=== PATIENT | female | born 1935 | race Caucasian/White ===

== ENCOUNTER 2016-10-25 15:49 | Inpatient (IN) | payer MEDICARE ==
--- NOTE | ~2016-10-25 | CN ---
Consultation Report [facility] [address] [place]. [address] NAME: AFIA KRUEGER : 37 STATUS : ADM IN [facility]#: [id number] AGE: 81 ADM/REG DATE : 10/25/16 MR#: [id number] REPORT SERV DATE: 10/26/16 DICTATED BY: KEVYN LOTT DATE: 10/26/16 REPORT STATUS : Draft TRANSCRIBED BY: SOWMYA DATE: 10/26/16 CONSULTATION DATE OF CONSULTATION: 10/26/2016 REASON FOR CONSULTATION: Left hip fracture. HISTORY: Ms Krueger is a 81-year-old female, who fell landing on her left side. Yesterday, she had immediate onset of severe left hip pain. She presented to [facility] Emergency Room where x-rays showed a displaced left femoral neck fracture. I have now been asked to see her for evaluation and treatment. The patient's history was obtained through the chart. She cannot verbally communicate due to underlying delirium. Her daughter is unavailable at the time of initial consultation. PHYSICAL EXAMINATION: She is awake, alert and oriented x1. There is no discernible cervical tenderness. She has no evidence of bony injury to either upper extremity or right lower extremity. With regard to her left lower extremity, it is shortened and externally rotated. She has no pain with AP or lateral compression of her pelvis. She is non-tolerant to any attempted passive left hip range of motion. There is moderate trochanteric tenderness. She has no tenderness in the mid thigh distally. Sciatic nerve motor function was unable to be assessed due to the patient's underlying mental status. She does withdraw to plantar stimulation. She has weakly present, but palpable pedal pulses. DIAGNOSTIC STUDIES: X-rays of her left hip show a displaced transcervical left femoral neck fracture. IMPRESSION: Displaced transcervical left femoral neck fracture. PLAN: We will contact the patient's daughter with treatment options with recommendation for left hip beltran versus total hip arthroplasty. We will review the risks, benefits, and expected outcome of the surgery with her daughter. Thanks for the consultation. GARY/SOWMYA Kevyn Lott M.D. / [id number] Consultation Report [facility] [address] [place]. [address] NAME: AFIA KRUEGER DECEMBER : 37 STATUS : ADM IN PAT#: [id number] AGE: 81 ADM/REG DATE : 10/25/16 MR#: [id number] REPORT SERV DATE: 10/26/16 DICTATED BY: KEVYN LOTT DATE: 10/26/16 REPORT STATUS : Draft TRANSCRIBED BY: MODL DATE: 10/26/16 CC: Baljit Mcfadden M.D.
--- NOTE | ~2016-10-25 | DS ---
Discharge Summary [facility] [address] [place]. [address] NAME: AFIA JOHNSON : 37 STATUS : ADM IN [facility]#: [id number] AGE: 81 ADM/REG DATE : 10/25/16 MR#: [id number] REPORT SERV DATE: 10/28/16 DICTATED BY: BRETT GUILLEN DATE: 10/28/16 REPORT STATUS : Draft TRANSCRIBED BY: MODL DATE: 10/28/16 ADMISSION DATE: 10/25/2016 DISCHARGE DATE: 10/28/2016 DIAGNOSES ON ADMISSION: 1. Left hip fracture. 2. Diabetes mellitus with hyperglycemia. 3. Hypertension. 4. History of transient ischemic attacks in the past. 5. Hypothyroidism, on Synthroid. 6. Urinary tract infection. DIAGNOSES ON DISCHARGE: 1. Status post left femoral neck fracture, status post surgery by Dr. Lott. 2. Diabetes mellitus type 2, controlled. 3. Hypertension, controlled. 4. Hyperlipidemia, on statin. 5. History of transient ischemic attacks, on aspirin and Plavix at home. 6. Hypothyroidism, controlled. 7. Advanced dementia. 8. Urinary tract infection, treated. CONSULTANTS ON THE CASE: Orthopedist, Dr. Lott. SURGERIES: Left hip hemiarthroplasty done on 10/26/[address] Lott. HISTORY OF PRESENT ILLNESS: Per dictation of nurse practitioner, Dm Gentile, and under supervision of Dr. Mcfadden. HOSPITAL COURSE: Briefly, the patient was seen by Dr. Mcfadden and his nurse practitioner Dm Gentile until 10/27/2016 when I started to see this patient. The patient was doing very well postsurgically. She was very stable. Her blood pressure was in the normal range as well as blood sugar was controlled, and she was doing well from surgical standpoint. She needs to continue to be more active with physical therapy, and she was discharged to [facility] today. She was approved for [facility] and she is very stable to go to [facility]. Regarding her urinary tract infection, it was treated empirically with antibiotics. She was afebrile and doing very well. She had elevated white count, but this is related to steroids. She was given a high dose of Decadron during surgery and now the white count is coming down, but she does not have any sign of infection. She is afebrile and doing very well, so leukocytosis is postsurgical plus dexamethasone steroid related. DISCHARGE MEDICATIONS: Norvasc 5 mg a day, Lipitor 40 mg a day, ferrous sulfate 300 mg b.i.d., insulin Lantus 20 units at bedtime, NovoLog level 1 sliding scale before meals, levothyroxine 25 mcg a day, lisinopril 40 mg a day, multivitamins daily, Lopressor 25 mg twice a day, Zoloft 50 mg a day, trazodone 100 mg at bedtime. Ade nurse practitioner of Dr. Lott recommended the patient to be on the Coumadin, sliding scale level 2 for 6 [address]charge Summary [address] [address] NAME: AFIA JOHNSON DECEMBER : 37 STATUS : ADM IN [facility]#: [id number] AGE: 81 ADM/REG DATE : 10/25/16 MR#: [id number] REPORT SERV DATE: 10/28/16 DICTATED BY: BRETT GUILLEN DATE: 10/28/16 REPORT STATUS : Draft TRANSCRIBED BY: SOWMYA DATE: 10/28/16 weeks. She also said that the patient can continue Plavix and aspirin since she is not on a low dose Coumadin sliding scale. Also pain medication prescription for hydrocodone 10/325 q.4 hours p.r.n. was prescribed by Ade, nurse practitioner of Dr. Lott. Zofran 4 mg p.o. q.4 hours p.r.n. for nausea, aspirin 81 mg p.o. daily. I spent 45 minutes on discharge. The patient was discharged in a stable condition. /MODL Brett Guillen M.D. / [id number] CC: Wade Messer M.D. William Hartley, M.D.
--- NOTE | ~2016-10-25 | HP ---
History And Physical [facility] [address] [place]. [address] NAME: AFIA JOHNSON : 37 STATUS : ADM IN [facility]#: [id number] AGE: 81 ADM/REG DATE : 10/25/16 MR#: [id number] REPORT SERV DATE: 10/25/16 DICTATED BY: JAMIE HESS DATE: 10/25/16 REPORT STATUS : Draft TRANSCRIBED BY: MODL DATE: 10/25/16 DATE OF ADMISSION: 10/25/2016 HISTORY OF PRESENT ILLNESS: This is a 81-year-old female who is transferred to us from [facility] Emergency Room. She had a history of dementia, had a mechanical fall at home, while at home with , she got up from chair when he did not see her, and apparently bounced off the couch arm, lost her balance, and fell between the couch and chair onto a hardwood floor onto her left hip. The patient was in severe pain, unable bear weight, and was therefore brought to the emergency room at [facility] via ambulance where x-rays revealed a left hip fracture. Also urinalysis showed evidence of UTI, and in the emergency room at [facility], the patient received IV morphine and Zofran for hip pain and received a dose of IV Rocephin x1 dose for the UTI. Additionally, she was found to have a blood sugar greater than 400. She was given 4 units of regular insulin and her last known blood sugar was 275. Currently upon arriving at [facility], the patient is calm, does not appear to be in any pain while at rest. No shortness of breath. No chest pain. No nausea or vomiting. No abdominal pain. She has a little bit sedated and drowsy from giving IV pain medicine. PAST MEDICAL HISTORY: 1. Hypertension. 2. Diabetes type 2. 3. Hyperlipidemia. 4. Depression. 5. Hypothyroid. 6. Dementia. 7. History of TIA. 8. Dysphagia, apparently mild, only gets choked up with pills. PAST SURGICAL HISTORY: 1. Left knee patella fracture repair. 2. Hysterectomy. SOCIAL HISTORY: Lives with and daughter, demented, uses a gait belt for transfer. No smoking history. No alcohol history. FAMILY HISTORY: Noncontributory. REVIEW OF SYSTEMS: A 12-point review of systems reviewed with the patient and family and are negative except as previously mentioned. HOME MEDICATIONS: 1. Amlodipine 5 mg p.o. daily. 2. Plavix 75 mg p.o. daily. 3. Amaryl 2 mg p.o. daily. 4. Lantus 20 units subcu q.h.s. History And Physical [address] [place]. [address] NAME: AFIA JOHNSON DECEMBER : 39 STATUS : ADM IN PAT#: [id number] AGE: 81 ADM/REG DATE : 10/25/16 MR#: [id number] REPORT SERV DATE: 10/25/16 DICTATED BY: JAMIE HESS DATE: 10/25/16 REPORT STATUS : Draft TRANSCRIBED BY: SOWMYA DATE: 10/25/16 5. Synthroid 25 mcg p.o. daily. 6. Prinivil 40 mg p.o. daily. 7. Lopressor 50 mg half tablet b.i.d. 8. Pravachol 40 mg p.o. daily. 9. Trazodone 100 mg p.o. daily. 10.Sertraline 50 mg p.o. daily. ALLERGIES: ARICEPT, NAUSEA. PHYSICAL EXAMINATION: VITAL SIGNS: Blood pressure 156/74, heart rate 76, respirations 15, O2 saturation 98% on 2 L nasal cannula, and temperature 98.6. GENERAL: On exam, the patient is cooperative, no apparent distress, mildly drowsy. NEUROLOGIC: Alert after being awakened, but confused, unable to do much conversing, mainly just mumbles and smiles. No focal weakness. Face is symmetrical. Cranial nerves 2 through 12 grossly intact. NECK: No JVD. LUNGS: Clear to auscultation bilaterally with normal respiratory effort. CARDIOVASCULAR: No murmurs auscultated. Regular rhythm. ABDOMEN: Soft, nontender. Active bowel sounds. EXTREMITIES: No edema. Normal distal pulses. No calf tenderness. Left lower extremity is externally rotated and shortened. No bruising at hips at the site of fracture. LABORATORY DATA: White blood cell count 18.1, hemoglobin 14.1, hematocrit 42.6, platelets 157. Sodium 137, potassium 3.7, chloride 103, CO2 of 23, BUN 16, creatinine 1.07, glucose 275. Urinalysis: White blood cells 62, moderate bacteria, greater than 500 glucose, positive protein. EKG shows notes normal sinus rhythm with PACs. Heart rate 77. X-ray of bilateral hips and pelvis shows left complete femoral neck fracture. ASSESSMENT AND PLAN: 1. Left hip fracture. X-ray positive for complete left femoral neck fracture. We will provide p.r.n. analgesics. Make patient n.p.o. after midnight. Orthosurgery has been consulted. We will be holding her home Plavix. 2. Diabetes type 2 with hyperglycemia, last blood sugar was 275. We will lower her home Lantus dose and actually substitute with Levemir 10 units q.h.s. and use sliding scale insulin with level 1 NovoLog with a.c. h.s. Accu-Cheks and hold Amaryl. 3. Hypertension. Blood pressure currently 156/74. Resume home blood pressure medications including Norvasc, lisinopril, and Lopressor. Hold parameters for lisinopril if blood pressure systolically less than 120. 4. Hyperlipidemia, on Pravachol at home. Continue. 5. History of transient ischemic attack. At home, the patient is on statin, aspirin, and Plavix. We will be holding aspirin and Plavix preoperatively. 6. Hypothyroid, on Synthroid. We will continue her home Synthroid and check TSH in the morning. History And Physical [address] [address] NAME: AFIA JOHNSON : 37 STATUS : ADM IN [facility]#: [id number] AGE: 81 ADM/REG DATE : 10/25/16 MR#: [id number] REPORT SERV DATE: 10/25/16 DICTATED BY: JAMIE HESS DATE: 10/25/16 REPORT STATUS : Draft TRANSCRIBED BY: MODL DATE: 10/25/16 7. Urinary tract infection. Urinalysis found to be positive for urinary tract infection. Urine culture pending. Serum white blood cell count 18,000. Given one dose of IV Rocephin already in the [facility]. We will continue Rocephin 1 g IV daily and adjust accordingly after culture results. NANETTE/MODL Jamie Hess APN / [id number] CC: Wade Nuñez M.D. William Hartley, M.D.
--- NOTE | ~2016-10-25 | OP ---
Record Of Operation [facility] [address] [place]. [address] NAME: AFIA KRUEGER : 37 STATUS : ADM IN PAT#: [id number] AGE: 81 ADM/REG DATE : 10/25/16 MR#: [id number] REPORT SERV DATE: 10/26/16 DICTATED BY: KEVYN LOTT DATE: 10/26/16 REPORT STATUS : Draft TRANSCRIBED BY: MODL DATE: 10/26/16 DATE OF PROCEDURE: 10/26/2016 PREOPERATIVE DIAGNOSIS: Displaced left femoral neck fracture. POSTOPERATIVE DIAGNOSIS: Displaced left femoral neck fracture. OPERATION: Left hip hemiarthroplasty. SURGEON: Kevyn Lott MD [employer]: Kvng Krueger. ANESTHESIA: Spinal with MAC. ESTIMATED BLOOD LOSS: 300 mL. COMPLICATIONS: None. DRAIN: ConstaVac x1. IMPLANTS: DePuy [place] size 5 high offset femoral component with a 45 mm outer diameter, -3 neck length monopolar head and neck segment. INDICATIONS FOR SURGERY: Ms. Krueger is a 81-year-old female, who sustained the above- mentioned fracture in a fall. It was recommended that she undergo hemiarthroplasty. Risks of the procedure including infection, neurovascular damage, DVT, PE, blood loss requiring transfusion, fracture, dislocation, leg length discrepancy, component loosening, component wear, anesthetic complications, and others were discussed with her daughter preoperatively. Her daughter fully understood and has requested to proceed. PROCEDURE IN DETAIL: The patient was brought to the operating room and after adequate induction of anesthesia was positioned in the lateral decubitus position using the hip wreath inspector positioners. All appropriate pressure points were padded. The patient was given 1 gram of Ancef IV preoperatively. The hip was then prepped and draped in the usual sterile fashion. A posterolateral approach to the hip was performed. The skin and subcutaneous tissues were incised sharply using a #10 blade; electrocautery was used as needed to maintain hemostasis. The fascia felipe and fascia over the gluteus lucia were incised in line with the incision and the fibers of the gluteus lucia split using blunt dissection. The sciatic nerve was identified and carefully protected throughout the remainder of the case. A Charnley retractor was placed. The hip was then placed in flexion and internal rotation and the gluteus medius retracted anteriorly to expose the piriformis tendon. A full thickness capsulotomy was begun at the superior border of the piriformis tendon and extended anteriorly inferiorly using an inside out technique, taking down a portion of the short external rotators. Care was taken not to damage the labrum of the hip. The fracture site was exposed and the femur displaced anteriorly. A corkscrew was used to excise the femoral head Record Of Operation [facility] [address] [place]. [address] NAME: AFIA KRUEGER DECEMBER : 37 STATUS : ADM IN PAT#: [id number] AGE: 81 ADM/REG DATE : 10/25/16 MR#: [id number] REPORT SERV DATE: 10/26/16 DICTATED BY: KEVYN LOTT DATE: 10/26/16 REPORT STATUS : Draft TRANSCRIBED BY: SOWMYA DATE: 10/26/16 and the femoral head sized using hole templates. The appropriate sized femoral head trial was placed in the acetabulum to assure appropriate fit. Attention was then returned to the femur. The hip was placed in flexion and internal rotation and retractors carefully placed, protecting the sciatic nerve. The medial aspect of the greater trochanter was debrided of any cortical bone and soft tissue. The femoral canal was opened using a blunt tipped reamer. The lateralizing reamer was then used to clear any remaining cortical bone. The femur was then sequentially broached, beginning with size 1 and progressing sequentially until appropriate proximal metaphyseal fit and fill was obtained. The trial broach was left in place and a trial head and neck segment placed. The hip was reduced. The neck length was adjusted to reproduce equal leg lengths. The stability of the hip was then assessed at the patient's limit of extension and external rotation and to assure stability to 90 degrees of flexion and a minimum of 70 degrees of internal rotation and also stability in the position of sleep. Once this had been obtained, the hip was dislocated and the trial components were removed. The femoral canal was copiously irrigated with normal saline and dried and the final femoral component impacted into the femur to an identical level and identical anteversion of the trial component. A trial reduction was once again performed. Leg length and stability were unchanged. The true head and neck segment were then impacted into the clean femoral taper. The acetabulum was inspected to be sure it was free of all foreign matter and the hip reduced. The wound was copiously irrigated with pulsatile lavage normal saline. The capsule was repaired using interrupted #1 Vicryl suture in [id number] fashion. The short external rotators were repaired using a combination of #5 Ethibond and #1 Vicryl suture in horizontal mattress fashion. A drain was placed deep to the fascia. The fascia was repaired using interrupted #1 Vicryl suture in [id number] fashion. Subcutaneous tissue was approximated using interrupted 2-0 Vicryl suture and the skin stapled. Sterile dressing was applied and the patient awakened and taken to the recovery room in stable condition. POSTOP PLAN: The patient is to be weightbearing as tolerated with physical therapy to be started per hemiarthroplasty protocol. The patient will be on Coumadin and mechanical deep venous thrombosis prophylaxis. GARY/SOWMYA Kevyn Lott M.D. / [id number] CC: Baljit Mcfadden M.D. UNKNOWN
[~2016-10-25 15:49] MED LIST: AMARYL2 PO; ATV.5 PO; EXELON4.6T TOP; GLUCPH PO; LANTUS SC; LISINOPRIL40 MG PO; LOP25 PO; LOP50 PO; NORV5 PO; PLAVIX PO; PRAVACHOL40 MG PO; SYN.05 PO; TRAZ100
[2016-10-25] MEDS ORDERED: LOP25 PO (17:13)
[2016-10-25] MEDS ORDERED: PLAVIX PO (17:13)
[2016-10-25] MEDS ORDERED: LEVOTHROID25 MCG PO (17:13)
[2016-10-25] MEDS ORDERED: NORV5 PO (17:14)
[2016-10-25] MEDS ORDERED: AMARYL2 PO (17:14)
[2016-10-25] MEDS ORDERED: LIPITOR40 PO (17:16)
[2016-10-25] MEDS ORDERED: TRAZ100 PO (17:17)
[2016-10-25] MEDS ORDERED: ASAB PO (17:17)
[2016-10-25] MEDS ORDERED: LISINOPRIL40 MG PO (17:17)
[2016-10-25] MEDS ORDERED: LANTUS SC (17:18)
[2016-10-25] MEDS ORDERED: ZOL50 PO (17:19)
[2016-10-26 04:51] LABS: HEMATOCRIT 39.2 % (36.0-48.0); HEMOGLOBIN 13.3 g/dL (12.0-16.0); MEAN CORPUS HGB CONC 33.9 g/dL (32.0-36.0); MEAN CORPUSCULAR HEMOGLOB 30.9 pg (26.0-34.0); MEAN PLATELET VOLUME 11.2 fL (9.2-13.0); PLATELET COUNT 156 10/3/uL (150-400); RBC DISTRIBUTION WIDTH 13.6 % (12.0-16.0); RED CELL COUNT 4.31 10/6/uL (4.0-5.6); WHITE BLOOD CELLS 17.4 10/3/uL (4.5-10.5)
[2016-10-26 04:54] LABS: MANUAL DIFF YES %
[2016-10-26 05:15] LABS: BUN (BLOOD UREA NITROGEN) 16 MG/DL (6-23); CALCIUM, SERUM 8.5 MG/DL (8.5-10.4); CHLORIDE, SERUM 105 MMOL/L (96-112); CO2 (CARBON DIOXIDE) 28 MMOL/L (24-34); GFR AFRICAN AMERICAN 70 ML/MIN (>=60); GFR NON AFRICAN AMERICAN 61 ML/MIN (>=60); GLUCOSE, SERUM 176 MG/DL (60-99); POTASSIUM, SERUM 4.1 MMOL/L (3.5-5.3); SODIUM, SERUM 140 MMOL/L (135-148)
[2016-10-26 05:39] LABS: LYMPHOCYTES 8 %; LYMPHOCYTES ABSOLUTE (CALC) 1.39 10/3/uL (0.67-4.30); MONOCYTES 4 %; NEUTROPHILS ABSOLUTE (CALC) 15.31 10/3/uL (2.02-8.40); PLATELET ESTIMATE ADQ (ADEQUATE); POIKILOCYTOSIS 1+ (5-10/OIF) (0-5/OIF); SEGMENTED NEUTROPHIL (0) 88 %; TOTAL NUCLEATED CELLS 100
[2016-10-26 12:55] LABS: ALLENS TEST Pos; BE (BASE EXCESS) 0.5 MEQ/L (0 +/- 2.5); CARBOXYHEMOGLOBIN 0.5 % (0-3); DEVICE NC; HEMOBLOGIN CONTENT 13.7 G/DL (12-16); INSTRUMENT SERIAL # 11843; METHEMOGLOBIN 0.6 % (0-3); O2 CONTENT 17.4 VOL% (18-24); OPERATOR ID 19104; PCO2 (CO2 TENSION) 45 MMHG (35-45); PO2 (O2 TENSION) 64 MMHG (79-93); SAMPLE Arterial; pH 7.38 (7.37-7.43)
[2016-10-27 04:49] LABS: BASOPHILS 0 %; EOSINOPHILS 0 %; HEMOGLOBIN 11.4 g/dL (12.0-16.0); IMMATURE GRANULOCYTES 0.3 %; IMMATURE GRANULOCYTES ABSOLUTE 0.05 10/3/uL (0.0-0.11); LYMPHOCYTES 7.3 %; MEAN CORPUS HGB CONC 34.7 g/dL (32.0-36.0); MEAN CORPUSCULAR HEMOGLOB 31.6 pg (26.0-34.0); MEAN CORPUSCULAR VOLUME 91.1 fL (80-100); MEAN PLATELET VOLUME 11.1 fL (9.2-13.0); MONOCYTES 7.4 %; MONOCYTES ABSOLUTE 1.11 10/3/uL (0.21-1.20); PLATELET COUNT 135 10/3/uL (150-400); RBC DISTRIBUTION WIDTH 13.7 % (12.0-16.0); RED CELL COUNT 3.61 10/6/uL (4.0-5.6); WHITE BLOOD CELLS 15.1 10/3/uL (4.5-10.5)
[2016-10-27 04:50] LABS: HEMATOCRIT 32.9 % (36.0-48.0); MANUAL DIFF NO %
[2016-10-27 04:55] LABS: INTERNATIONAL NORMAL RATI 1.3 UNITS (-); PROTIME (NOT ORD) 15.6 SEC (12.0-14.5)
[2016-10-27 05:03] LABS: CALCIUM, SERUM 8.3 MG/DL (8.5-10.4); CHLORIDE, SERUM 104 MMOL/L (96-112); CO2 (CARBON DIOXIDE) 27 MMOL/L (24-34); CREATININE 0.97 MG/DL (0.55-1.02); GFR AFRICAN AMERICAN 64 ML/MIN (>=60); GFR NON AFRICAN AMERICAN 56 ML/MIN (>=60); GLUCOSE, SERUM 159 MG/DL (60-99); POTASSIUM, SERUM 3.8 MMOL/L (3.5-5.3); SODIUM, SERUM 139 MMOL/L (135-148)
[2016-10-27 05:04] LABS: BUN (BLOOD UREA NITROGEN) 22 MG/DL (6-23)
[2016-10-28 08:21] LABS: BASOPHILS 0.1 %; BASOPHILS ABSOLUTE 0.01 10/3/uL (0.0-0.16); EOSINOPHILS 0.2 %; EOSINOPHILS ABSOLUTE 0.03 10/3/uL (0.0-0.53); HEMOGLOBIN 11.3 g/dL (12.0-16.0); IMMATURE GRANULOCYTES 0.5 %; IMMATURE GRANULOCYTES ABSOLUTE 0.08 10/3/uL (0.0-0.11); LYMPHOCYTES 11.5 %; LYMPHOCYTES ABSOLUTE 1.82 10/3/uL (0.67-4.30); MEAN CORPUS HGB CONC 34.2 g/dL (32.0-36.0); MEAN CORPUSCULAR HEMOGLOB 30.8 pg (26.0-34.0); MEAN CORPUSCULAR VOLUME 89.9 fL (80-100); MEAN PLATELET VOLUME 11.1 fL (9.2-13.0); MONOCYTES 9.9 %; MONOCYTES ABSOLUTE 1.57 10/3/uL (0.21-1.20); NEUTROPHILS 77.8 %; PLATELET COUNT 161 10/3/uL (150-400); RBC DISTRIBUTION WIDTH 13.3 % (12.0-16.0); RED CELL COUNT 3.67 10/6/uL (4.0-5.6); WHITE BLOOD CELLS 15.8 10/3/uL (4.5-10.5)
[2016-10-28 08:22] LABS: MANUAL DIFF NO %
[2016-10-28 08:28] LABS: INTERNATIONAL NORMAL RATI 1.5 UNITS (-); PROTIME (NOT ORD) 18.3 SEC (12.0-14.5)
[2016-10-28 08:37] LABS: BUN (BLOOD UREA NITROGEN) 20 MG/DL (6-23); CALCIUM, SERUM 8.1 MG/DL (8.5-10.4); CHLORIDE, SERUM 106 MMOL/L (96-112); CO2 (CARBON DIOXIDE) 27 MMOL/L (24-34); CREATININE 0.72 MG/DL (0.55-1.02); GFR AFRICAN AMERICAN 92 ML/MIN (>=60); GFR NON AFRICAN AMERICAN 80 ML/MIN (>=60); GLUCOSE, SERUM 135 MG/DL (60-99); POTASSIUM, SERUM 3.6 MMOL/L (3.5-5.3); SODIUM, SERUM 142 MMOL/L (135-148)
== END 2016-10-28 17:23 | DRG 470 ==
LOC: 3SO 15:49
PROVIDERS: Hospitalist; Internal Medicine; Nurse Practitioner Gerontology; Specialist
PROC: 0SRB02Z Replacement of Left Hip Joint with Metal on Polyethylene Synthetic Substitute, Open Approach (ICD-10-PCS; principal; 2016-10-25)
DX: S72.002A Fracture of unspecified part of neck of left femur, initial encounter for closed fracture (principal); F03.90 Unspecified dementia, unspecified severity, without behavioral disturbance, psychotic disturbance, mood disturbance, and anxiety; N39.0 Urinary tract infection, site not specified; I10 Essential (primary) hypertension; E03.9 Hypothyroidism, unspecified; E78.5 Hyperlipidemia, unspecified; E11.9 Type 2 diabetes mellitus without complications; Z86.73 Personal history of transient ischemic attack (TIA), and cerebral infarction without residual deficits
CPT/HCPCS: 36415; 36600; 71010; 72170; 73502-LT; 80048; 81001; 82805; 82962; 83036; 83735; 84443; 84484; 85025; 85610; 85730; 86850; 86900; 86901; 87086; 87641; 88305; 88311; 93005; 94640; 96374; 96375; 97110-GP; 97162-GP; 97166-GO; 99285; A9270-GY; C1776; J0690; J2370; J2405; J2710; J3010